=== PATIENT | female | born 1975 | race American Indian/Alaskan Native ===

== ENCOUNTER 2022-01-26 14:09 | Outpatient (CLI) | payer BC ==
--- NOTE | 2022-01-26 15:44 | Ultrasound Report ---
ULTRASOUND BREAST LEFT LIMITED, 01/26/2022 CLINICAL INFORMATION / INDICATION: Abnormal screening mammogram. TECHNIQUE: Targeted ultrasound evaluation was performed of the area of interest. COMPARISON: Baseline screening mammogram 12/23/2021 FINDINGS: In the 4:00 position, 9 cm from the nipple, corresponding to the radiographic abnormality, a correlating ovoid macrolobulated solid mass is seen with a length of 16 mm and a maximal thickness of 19 mm. Lesion is wider than tall. As is seen on the mammogram, this has either a small lobular pro trusion from the midportion or there is an adjacent similar solid nodule; I favor the latter based on apparent boundaries seen between the 2 areas. I do not clearly see shadowing. No significant vascula rity is noted. Examination of the left axilla shows multiple benign-appearing nodes with large well-defined fatty hi la. I do not see significant cortical thickening. IMPRESSION: Solid nodules are seen at the site of radiographic abnormality. Stability is unknown. The appearance is most characteristic of benign fibroadenomata. Follow up recommendation: Follow-up left breast ultrasound in 6 months BI-RADS Category 3: PROBABLY BENIGN. Followup in 6 months. A normal or "negative" report should not preclude biopsy or follow-up of a clinically suspicious find ing. Signer Name: Junaid Cantu MD Signed: 01/26/2022 3:40 PM Workstation Name: [id number]
== END 2022-01-26 14:10 | disposition home or self-care (01) ==
LOC: US 14:09
PROVIDERS: ATTEND Obstetrics & Gynecology
DX: N63.23 Unspecified lump in the left breast, lower outer quadrant (principal); N64.59 Other signs and symptoms in breast; R92.2 Inconclusive mammogram